=== PATIENT | female | born 1975 | race Two or more races ===

== ENCOUNTER 2020-10-25 02:19 | Emergency (ER) | payer OTHER ==
[~2020-10-25] VITALS: Ht 149.9 cm; Wt 112.0 kg
[2020-10-25] MEDS ORDERED: ACETAMINOPHEN 325 MG TAB PO ONE (03:00)
[2020-10-25 06:20] VITALS: BP 128/70
== END 2020-10-25 06:35 | disposition home or self-care (01) ==
LOC: ER 02:22
DX: J06.9 Acute upper respiratory infection, unspecified (principal); Z20.828 Contact with and (suspected) exposure to other viral communicable diseases

== ENCOUNTER 2022-02-07 21:10 | Emergency (ER) | payer OTHER ==
[~2022-02-07] VITALS: Ht 149.9 cm; Wt 111.1 kg
[2022-02-07 22:37] LABS: Eosinophils # (auto) 0.1 10 ^3/uL (0-0.8); Nucleated Red Blood Cells % 0.1 %; White Blood Cell 8.3 10^3/uL (4.4-10.8)
[2022-02-07 22:38] LABS: Basophils # (auto) 0 10 ^3/uL (0-0.2); Basophils % (auto) 0.4 % (0.0-2.0); Eosinophils % (auto) 1.6 % (0.0-7.0); Hematocrit 38.1 % (36.0-46.0); Hemoglobin 12.4 g/dL (12.2-16.2); Lymphocytes % (auto) 24.3 % (10.0-50.0); Mean Corpuscular Hemoglobin 25.6 pg (28.0-32.0); Mean Corpuscular Hgb Conc. 32.6 g/dL (32.0-36.0); Mean Corpuscular Volume 78.6 fL (80.0-100.0); Monocytes # (auto) 0.5 10 ^3/uL (0-1.3); Monocytes % (auto) 6.4 % (0.0-12.0); Neutrophils # (auto) 5.6 10 ^3/uL (1.6-8.6); Neutrophils % (auto) 67.3 % (37.0-80.0); Red Blood Cells 4.85 10^6/uL (4.0-5.20)
[2022-02-07 22:55] LABS: Alanine Aminotransferase 27 U/L (13-56); Albumin 3.3 g/dL (3.4-5.0); Anion Gap 7 (5-15); Aspartate Aminotransferase 13 U/L (15-37); BUN/Creatinine Ratio 17.9; Blood Urea Nitrogen 12 mg/dL (7-18); Calcium 8.8 mg/dL (8.5-10.1); Carbon Dioxide 26 mmol/L (21-32); Chloride 103 mmol/L (98-107); GFR African American 123 mL/min; GFR Non-African American 102 mL/min; Glucose 148 mg/dL (74-106); Magnesium 2.1 mg/dL (1.6-2.6); Sodium 136 mmol/L (136-145)
[2022-02-07 23:00] LABS: Alkaline Phosphatase 96 U/L (45-117); Bilirubin, Total 0.2 mg/dL (0.2-1.0); Total Protein 8.4 g/dL (6.4-8.2)
[2022-02-08 01:28] LABS: Urine Bacteria NONE SEEN /hpf (None Seen); Urine Blood Negative /uL (Negative); Urine WBC 1 /hpf (0 - 5)
[2022-02-08] MEDS ORDERED: LIDOCAINE VISCOUS 2% 15ML UD PO ONE (07:30)
[2022-02-08] MEDS ORDERED: DONNATAL 5ml ORAL Elix (BELLADONNA ALK-PHENOBARB) PO ONE (07:30)
[2022-02-08] MEDS ORDERED: ALUM & MAG HYDROX-SIMETH LIQ(MAALOX) 30 ML PO ONE (07:30)
[2022-02-08 07:39] VITALS: BP 130/94
[2022-02-08] MEDS ORDERED: PANT40TA2 PO (08:00)
== END 2022-02-08 08:35 | disposition home or self-care (01) ==
LOC: ER 21:13
DX: R07.89 Other chest pain (principal); J45.909 Unspecified asthma, uncomplicated; E11.9 Type 2 diabetes mellitus without complications
CPT/HCPCS: 36415; 71045; 80053; 81001; 81025; 83735; 84443; 84484; 85025; 93005